=== PATIENT | female | born 1950 | race Caucasian/White ===

== ENCOUNTER 2023-12-16 14:28 | Emergency (ER) | payer MEDICARE, OTHER ==
[~2023-12-16] VITALS: Ht 160 cm; Wt 59.0 kg
[2023-12-16 14:30] VITALS: O2SAT 99
[2023-12-16 15:33] VITALS: TEMP 98.1
[2023-12-16] MEDS: ACETAMINOPHEN 325MG TABLET PO ONE (15:33)
[2023-12-16] MEDS ORDERED: POLY17PO3 MT (16:20)
[2023-12-16 16:38] VITALS: BP 126/55; PULSE 81; RESP 14
== END 2023-12-16 17:05 | disposition home or self-care (01) ==
LOC: ER 14:28
DX: R07.81 Pleurodynia (principal); K59.00 Constipation, unspecified; E11.9 Type 2 diabetes mellitus without complications; I10 Essential (primary) hypertension; W18.39XA Other fall on same level, initial encounter; Y93.89 Activity, other specified; Y92.89 Other specified places as the place of occurrence of the external cause; Y99.8 Other external cause status
CPT/HCPCS: 71046; 99283